=== PATIENT | female | born 1960 | race Hispanic/Latino ===

== ENCOUNTER 2017-12-19 11:03 | Outpatient (CLI) | payer BC ==
--- NOTE | 2017-12-19 15:35 | Magnetic Resonance Report ---
MRI UPPER EXTREMITY JOINT LEFT WITHOUT CONTRAST History: Shoulder pain. Bursitis of left shoulder. Technique: Multisequence, multiplanar MRI without contrast was performed through the left shoulder. Findings: The distal, anterior supraspinatus tendon is markedly thickened with increased intrinsic signal. A greater than 50% thickness partial tear along the articular surface of the distal supraspinatus tendon is suspected. There may be a pinhole full-thickness component to this tear. The infraspinatus, subscapularis and teres minor tendons appear intact. There is marked thickening and increased intrinsic signal in the intra-articular portion of the long head of the biceps tendon. A longitudinal tear is suspected. The labrum is grossly intact. No SLAP lesion is appreciated. There is normal bone marrow signal throughout the visualized left shoulder. No evidence for fracture, bone lesion or ligamentous injury. Small joint effusion and trace fluid in the subacromial/subdeltoid bursa is noted. IMPRESSION: Partial thickness tear in the distal anterior supraspinatus tendon. See above. Longitudinal tear in the long head of the biceps tendon. Small joint effusion and bursal fluid.
== END 2017-12-19 11:04 | disposition home or self-care (01) ==
LOC: MRI 11:03
DX: S46.121A Laceration of muscle, fascia and tendon of long head of biceps, right arm, initial encounter (principal); M75.52 Bursitis of left shoulder; I10 Essential (primary) hypertension; G47.30 Sleep apnea, unspecified; E11.9 Type 2 diabetes mellitus without complications; Z90.49 Acquired absence of other specified parts of digestive tract; Z98.51 Tubal ligation status; X58.XXXA Exposure to other specified factors, initial encounter; Y93.89 Activity, other specified; Y92.89 Other specified places as the place of occurrence of the external cause; Y99.8 Other external cause status

== ENCOUNTER 2019-01-22 06:27 | Outpatient (CLI) | payer BC ==
[2019-01-22 06:45] LABS: Hematocrit 40.2 % (30.3-42.9); Hemoglobin 13.9 gm/dl (10.1-14.3); Mean Corpuscular HGB Conc 35 % (30-34); Mean Corpuscular Volume 85 fl (79-97); Platelet Count 302 K/mm3 (140-440); Red Blood Count 4.76 M/mm3 (3.65-5.03); Red Cell Distribution Width 13.6 % (13.2-15.2)
[2019-01-22 07:33] LABS: Alanine Aminotransferase 16 units/L (7-56); BUN/Creatinine Ratio 36; Blood Urea Nitrogen 18 mg/dL (7-17); Calcium 9.6 mg/dL (8.4-10.2); Hemolysis Index 21; LDL Cholesterol,Direct 117 mg/dL (50-130)
[2019-01-22 07:43] LABS: Chol/HDL Ratio 2.98 %; HDL Cholesterol 59 mg/dL (40-59)
== END 2019-01-22 06:28 | disposition home or self-care (01) ==
LOC: LAB 06:27
PROVIDERS: ATTEND Family Medicine
DX: Z00.00 Encounter for general adult medical examination without abnormal findings (principal); E11.9 Type 2 diabetes mellitus without complications; I10 Essential (primary) hypertension; Z90.89 Acquired absence of other organs
CPT/HCPCS: 36415; 80053; 80061; 84443; 85027

== ENCOUNTER 2019-02-12 11:41 | Outpatient (CLI) | payer BC ==
--- NOTE | 2019-02-12 13:48 | XRay Report ---
RIGHT HAND, 3 VIEWS INDICATION: M79.64) PAIN IN HAND FINGERS. COMPARISON: None. IMPRESSION: Borderline bone mineralization. There is been previous internal fixation of the first m etacarpal with metal plate and screws. Please correlate with history. A subtle chip fracture is ident ified at the base of the middle phalanx of the third digit which is only appreciated on the frontal i mage. The remaining bony structures and joint spaces are unremarkable. The soft tissues are within no rmal limits. Signer Name: Moustapha Solo Jr, MD Signed: 02/12/2019 1:44 PM Workstation Name: [id number]
== END 2019-02-12 11:42 | disposition home or self-care (01) ==
LOC: XRAY 11:41
PROVIDERS: ATTEND Orthopaedic Surgery
DX: S62.622A Displaced fracture of middle phalanx of right middle finger, initial encounter for closed fracture (principal); I10 Essential (primary) hypertension; E11.9 Type 2 diabetes mellitus without complications; Z90.89 Acquired absence of other organs; X58.XXXA Exposure to other specified factors, initial encounter; Y93.89 Activity, other specified; Y92.89 Other specified places as the place of occurrence of the external cause; Y99.8 Other external cause status

== ENCOUNTER 2020-04-29 06:55 | Outpatient (CLI) | payer BC ==
[2020-04-29 07:25] LABS: Hematocrit 40.3 % (30.3-42.9); Hemoglobin 13.8 gm/dl (10.1-14.3); Mean Corpuscular HGB Conc 34 % (30-34); Mean Corpuscular Volume 83 fl (79-97); Platelet Count 339 K/mm3 (140-440); Red Blood Count 4.88 M/mm3 (3.65-5.03); Red Cell Distribution Width 13.7 % (13.2-15.2)
[2020-04-29 07:58] LABS: Alanine Aminotransferase 13 units/L (7-56); Albumin 3.9 g/dL (3.9-5); Blood Urea Nitrogen 17 mg/dL (7-17); Calcium 9.6 mg/dL (8.4-10.2); Chol/HDL Ratio 3.11 %; HDL Cholesterol 59 mg/dL (40-59); Hemolysis Index 2; LDL Cholesterol,Direct 108 mg/dL (50-130)
[2020-04-29 07:59] LABS: BUN/Creatinine Ratio 28
[2020-05-10 11:11] LABS: Vitamin D, 25-OH, D2 SEE SCANNED RESULT
== END 2020-04-29 06:56 | disposition home or self-care (01) ==
LOC: LAB 06:55
PROVIDERS: ATTEND Family Medicine
DX: I10 Essential (primary) hypertension (principal); E55.9 Vitamin D deficiency, unspecified
CPT/HCPCS: 36415; 80053; 80061; 82306; 84443; 85027

== ENCOUNTER 2020-07-20 07:50 | Outpatient (CLI) | payer BC ==
--- NOTE | 2020-07-20 15:37 | Mammography Report ---
DIGITAL SCREENING MAMMOGRAM WITH CAD, 07/20/2020 CLINICAL INFORMATION / INDICATION: Routine screening mammography. TECHNIQUE: Digital bilateral 2D mammography was obtained in the craniocaudal and mediolateral obliqu e projections. This examination was interpreted with the benefit of Computer-Aided Detection analysis . COMPARISON: 04/23/2017 FINDINGS: Breast Density: There are scattered areas of fibroglandular density. No dominant mass, suspicious calcifications, or architectural distortion in either breast. IMPRESSION: No mammographic evidence of malignancy. Follow up recommendation: Routine yearly BI-RADS Category 1: Negative. A "normal" or negative report should not discourage follow up or biopsy of a clinically significant f inding. A written summary of these findings will be mailed to the patient. The patient will be entered into a mammography reporting system which will generate a reminder letter for the patient's next appointmen t at the appropriate interval. The [employer] recommends yearly mammograms starting at age 40 and continuing as l raul as a woman is in good health. Breast MRI is recommended for women with an approximate 20-25% or greater lifetime risk of breast cancer, including women with a strong family history of breast or ova tori cancer or who have been treated for Hodgkin's disease. Signer Name: Vaughn Spain MD Signed: 07/20/2020 3:33 PM Workstation Name: [id number]
== END 2020-07-20 07:51 | disposition home or self-care (01) ==
LOC: MAMMO 07:50
PROVIDERS: ATTEND Family Medicine
DX: Z12.31 Encounter for screening mammogram for malignant neoplasm of breast (principal)
CPT/HCPCS: 77067

== ENCOUNTER 2021-12-21 06:54 | Outpatient (CLI) | payer BC ==
--- NOTE | 2021-12-23 15:58 | Mammography Report ---
DIGITAL SCREENING MAMMOGRAM WITH CAD, 12/21/2021 CLINICAL INFORMATION / INDICATION: Routine screening mammography. TECHNIQUE: Digital bilateral 2D mammography was obtained in the craniocaudal and mediolateral oblique projections. This examination was interpreted with the benefit of Computer-Aided Detection analysis. COMPARISON: 07/20/20, 04/23/17 FINDINGS: Breast Density: There are scattered areas of fibroglandular density. No dominant mass, suspicious calcifications, or architectural distortion in either breast. IMPRESSION: No mammographic evidence of malignancy. Follow up recommendation: Routine yearly screening mammogram. BI-RADS Category 1: NEGATIVE A "normal" or negative report should not discourage follow up or biopsy of a clinically significant f inding. A written summary of these findings will be mailed to the patient. The patient will be entered into a mammography reporting system which will generate a reminder letter for the patient's next appointmen t at the appropriate interval. The [employer] recommends yearly mammograms starting at age 40 and continuing as l raul as a woman is in good health. Breast MRI is recommended for women with an approximate 20-25% or greater lifetime risk of breast cancer, including women with a strong family history of breast or ova tori cancer or who have been treated for Hodgkin's disease. Signer Name: Estela Cross MD Signed: 12/23/2021 3:54 PM Workstation Name: [id number]
== END 2021-12-21 06:55 | disposition home or self-care (01) ==
LOC: MAMMO 06:54
PROVIDERS: ATTEND Family Medicine
DX: Z12.31 Encounter for screening mammogram for malignant neoplasm of breast (principal)
CPT/HCPCS: 77067